=== PATIENT | female | born 1990 | race Caucasian/White ===

== ENCOUNTER 2017-03-23 11:09 | Inpatient (IN) | payer BC ==
[2017-03-23] VITALS (19 sets, daily range): BP systolic 124–157; BP diastolic 60–86
[~2017-03-23] VITALS: Ht 162.6 cm; Wt 98.4 kg
[~2017-03-23 11:09] MED LIST: ULTRAM50 MG PO
[2017-03-23 13:14] LABS: EOSINOPHIL (%) 2.5 % (0-5); EOSINOPHIL COUNT 0.3 K/uL (0-0.3); HEMATOCRIT 32.4 % (36.0-46.0); IMMATURE GRANULOCYTE (%) 0.9 % (0.0-0.7); IMMATURE GRANULOCYTE COUNT 0.1 K/uL; INSTRUMENT ABS NEUTROPHIL CT 9.2 K/uL; LYMPHOCYTE COUNT 1.5 K/uL (1.0-2.8); MCHC 32.4 G/DL (30.0-36.0); MCV 86.4 FL (83-99); MEAN PLAT.VOLUME 11.7 uM^3 (9.5-12.4); MONOCYTE (%) 5.6 % (3-12); MONOCYTE COUNT 0.7 K/uL (0-0.8); NEUTROPHIL (%) 78.1 % (45-76); NEUTROPHIL COUNT 9.2 K/uL (1.8-6.4); PLATELET COUNT 205 K/uL (156-360); RBC DIS.WIDTH-CV 14.5 % (11.8-14.6); RED BLOOD COUNT 3.75 M/uL (3.80-5.20); WHITE BLOOD COUNT 11.7 K/uL (4.1-10.2)
[2017-03-24] VITALS (28 sets, daily range): BP systolic 104–165; BP diastolic 51–90
[2017-03-24] MEDS ORDERED: MOTRIN800 MG PO (16:38)
[2017-03-25 07:16] LABS: EOSINOPHIL (%) 1.5 % (0-5); EOSINOPHIL COUNT 0.2 K/uL (0-0.3); HEMATOCRIT 22.4 % (36.0-46.0); IMMATURE GRANULOCYTE (%) 0.5 % (0.0-0.7); IMMATURE GRANULOCYTE COUNT 0.1 K/uL; INSTRUMENT ABS NEUTROPHIL CT 11.1 K/uL; LYMPHOCYTE COUNT 2.1 K/uL (1.0-2.8); MCH 28.3 PG (29.0-34.0); MCHC 32.1 G/DL (30.0-36.0); MCV 88.2 FL (83-99); MEAN PLAT.VOLUME 12.4 uM^3 (9.5-12.4); MONOCYTE (%) 6.7 % (3-12); NEUTROPHIL (%) 76.6 % (45-76); NEUTROPHIL COUNT 11.1 K/uL (1.8-6.4); PLATELET COUNT 153 K/uL (156-360); RBC DIS.WIDTH-CV 14.9 % (11.8-14.6); RBC DIS.WIDTH-SD 47.8 % (39-53); WHITE BLOOD COUNT 14.5 K/uL (4.1-10.2)
[2017-03-25 07:18] LABS: RED BLOOD COUNT 2.54 M/uL (3.80-5.20)
[2017-03-25 07:44] VITALS: BP 110/59
[2017-03-25 14:31] VITALS: BP 105/55
[2017-03-25 23:49] VITALS: BP 114/55
[2017-03-26 07:31] VITALS: BP 114/54
[2017-03-26 08:06] LABS: HEMATOCRIT 21.4 % (36.0-46.0); MCH 28.2 PG (29.0-34.0); MCHC 31.8 G/DL (30.0-36.0); MCV 88.8 FL (83-99); MEAN PLAT.VOLUME 12.4 uM^3 (9.5-12.4); PLATELET COUNT 165 K/uL (156-360); RBC DIS.WIDTH-CV 15.1 % (11.8-14.6); RBC DIS.WIDTH-SD 48.7 % (39-53); RED BLOOD COUNT 2.41 M/uL (3.80-5.20); WHITE BLOOD COUNT 10.6 K/uL (4.1-10.2)
[2017-03-26] MEDS ORDERED: CHROMAGEN SOFT1 EACH PO (10:44)
[2017-03-26] MEDS ORDERED: PRENATAL TABLE1 EACH PO (10:44)
[2017-03-26 15:03] VITALS: BP 120/61
== END 2017-03-26 17:30 | disposition home or self-care (01) | DRG 775 ==
LOC: LDRP-OP 11:09 → 2WEST 11:10 → LDRP-OP 04-25 09:10
PROVIDERS: Midwife; Nurse Practitioner
PROC: 00HU33Z Insertion of Infusion Device into Spinal Canal, Percutaneous Approach (ICD-10-PCS; principal; 2017-03-23)
PROC: 3E0R3CZ (ICD-10-PCS; principal; 2017-03-23)
PROC: 10E0XZZ Delivery of Products of Conception, External Approach (ICD-10-PCS; principal; 2017-03-23)
DX: O62.2 Other uterine inertia (principal); O42.92 Full-term premature rupture of membranes, unspecified as to length of time between rupture and onset of labor; O99.214 Obesity complicating childbirth; O99.02 Anemia complicating childbirth; D62 Acute posthemorrhagic anemia; Z3A.39 39 weeks gestation of pregnancy; Z37.0 Single live birth; E66.9 Obesity, unspecified; Z68.30 Body mass index [BMI] 30.0-30.9, adult; Z3A.38 38 weeks gestation of pregnancy
CPT/HCPCS: 85025; 85027; C1755; G0378; J0595; J2405; J3010; J7120